=== PATIENT | female | born 1955 | race Caucasian/White ===

== ENCOUNTER 2018-05-02 06:29 | Day surgery (SDC) ==
[2018-05-02] MEDS: TETRACAINE 0.5% UNIT-DOSE OP PRN ×2 (07:00→08:03)
[2018-05-02] MEDS: BETADINE OPTH PREP OP PRN ×2 (07:00→08:03)
[2018-05-02] MEDS: CYCLOGYL 2% OPTH OP PRN ×3 (07:01→07:11)
[2018-05-02] MEDS ORDERED: LIDOCAINE 1% 20 ML MDV ID STA (07:07)
[2018-05-02] MEDS ORDERED: ZOFRAN 4 MG/2 ML IVP ONE (07:07)
[2018-05-02] MEDS ORDERED: BRIMONIDINE TARTRATE 0.2% OPTH SOL OP PRN (07:07)
[2018-05-02] MEDS ORDERED: SUBLIMAZE ONE (08:12)
[2018-05-02] MEDS: BSS WITH EPINEPHRINE OP ONE ×2 (08:12→08:18)
[2018-05-02] MEDS: LIDOCAINE 1%/PHENYLEPHRINE 1.5% BSS (SURGERY) INTRAOCULA ONE ×2 (08:12→08:18)
[2018-05-02] MEDS ORDERED: VERSED ONE (08:12)
[2018-05-02] MEDS: DEX-MOXI-KETOR OPTH INJ 1/0.5/0.4 MG/ML IO ONE ×2 (08:12→08:18)
[2018-05-02 13:31] VITALS: TEMP 98.4
[2018-05-10 14:18] VITALS: BP 121/68
== END 2018-05-02 09:35 | disposition home or self-care (01) ==
LOC: SURG 06:29
PROVIDERS: ATTEND Ophthalmology
DX: H25.811 Combined forms of age-related cataract, right eye (principal)

== ENCOUNTER 2018-05-16 07:11 | Day surgery (SDC) ==
[2018-05-16] MEDS: BETADINE OPTH PREP OP PRN ×2 (07:35→08:30)
[2018-05-16] MEDS: TETRACAINE 0.5% UNIT-DOSE OP PRN ×2 (07:35→08:30)
[2018-05-16] MEDS: CYCLOGYL 2% OPTH OP PRN ×3 (07:36→07:46)
[2018-05-16] MEDS ORDERED: LIDOCAINE 1%/PHENYLEPHRINE 1.5% BSS (SURGERY) INTRAOCULA ONE (07:41)
[2018-05-16] MEDS ORDERED: LIDOCAINE 1% 20 ML MDV ID STA (07:41)
[2018-05-16] MEDS ORDERED: BRIMONIDINE TARTRATE 0.2% OPTH SOL OP PRN (07:41)
[2018-05-16] MEDS ORDERED: DEX-MOXI-KETOR OPTH INJ 1/0.5/0.4 MG/ML IO ONE (07:41)
[2018-05-16] MEDS ORDERED: ZOFRAN 4 MG/2 ML IVP ONE (07:41)
[2018-05-16] MEDS ORDERED: BSS WITH EPINEPHRINE OP ONE (07:41)
[2018-05-16] MEDS ORDERED: ZOFRAN 4 MG/2 ML ONE (08:37)
[2018-05-16] MEDS ORDERED: SUBLIMAZE ONE (08:37)
[2018-05-16] MEDS ORDERED: VERSED ONE (08:37)
[2018-05-17 14:44] VITALS: BP 121/56; TEMP 98.6
== END 2018-05-16 09:45 | disposition home or self-care (01) ==
LOC: SURG 07:11
PROVIDERS: ATTEND Ophthalmology
DX: H25.812 Combined forms of age-related cataract, left eye (principal)